=== PATIENT | male | born 1990 | race American Indian/Alaskan Native ===

== ENCOUNTER 2023-12-02 15:59 | Emergency (ER) | payer OTHER ==
[~2023-12-02] VITALS: Ht 177.8 cm; Wt 104.8 kg
[2023-12-02 16:05] VITALS: BP 128/89; PULSE 79; RESP 16; TEMP 98.6; O2SAT 99
[2023-12-02] MEDS: LIDOcaine 1% 30ml preserv. free vial IJ STA (16:56)
[2023-12-02] MEDS ORDERED: tetanus & diphtheria toxoid (Td) vaccine 0.5ml IMVAC ONE (17:05)
[2023-12-02] MEDS: TETanus/Pertussis (Acell)/Diphther VAC/PF (Tdap-Adult) 0.5ml syringe IMVAC ONE (17:12)
== END 2023-12-02 17:27 | disposition home or self-care (01) ==
LOC: ER 15:59
DX: S71.111A Laceration without foreign body, right thigh, initial encounter (principal); W26.0XXA Contact with knife, initial encounter; Y93.89 Activity, other specified; Y92.89 Other specified places as the place of occurrence of the external cause; Y99.8 Other external cause status
CPT/HCPCS: 12002; 90471; 90715; 99283; A6449

== ENCOUNTER 2023-12-15 17:42 | Emergency (ER) | payer OTHER ==
[~2023-12-15] VITALS: Ht 180.3 cm; Wt 105.3 kg
[2023-12-15 17:48] VITALS: BP 130/80; PULSE 75; RESP 16; TEMP 98.5; O2SAT 98
[2023-12-15] MEDS ORDERED: DOXY-457 PO (18:37)
== END 2023-12-15 19:01 | disposition home or self-care (01) ==
LOC: ER 17:43
DX: S71.111D Laceration without foreign body, right thigh, subsequent encounter (principal); X58.XXXD Exposure to other specified factors, subsequent encounter
CPT/HCPCS: 99283

== ENCOUNTER 2025-06-13 16:05 | Emergency (ER) | payer SELFPAY ==
[~2025-06-13] VITALS: Ht 177.8 cm; Wt 99.5 kg
[2025-06-13 16:18] VITALS: BP 123/68; PULSE 72; RESP 15; TEMP 98; O2SAT 97
[2025-06-13] MEDS ORDERED: PRED10TA PO (16:26)
[2025-06-13] MEDS ORDERED: TRIA15CR61 TOP (16:26)
--- NOTE | 2025-06-13 16:26 | Physician Documentation ---
History of Present Illness ~ Chief Complaint: Rash Stated Complaint: POISON ROYCE Time Seen by MD: 16:22 Primary Medical Doctor: NONE Source: patient Mode of Arrival: POV Exam Limitations: no limitations HPI 34-year-old male with poison oak/poison royce to extremities and chest x6 days. Patient has been using hdgm-uox-oigjduj treatments but has increased itching Medication Reconciliation Allergies: Coded Allergies: cefaclor (Verified Allergy, Unknown, swelling, itching, rash, 06/13/25) Scheduled Prednisone (Prednisone), 1 TAB PO DAILY Triamcinolone Acetonide 0.5% Crm* (Kenalog 0.5% Crm*), 1 APPLIC TOP Q12H Past Medical History Past Medical History: No Pertinent History Past Surgical History: noncontributory Drug Use: none Lives with: Family Lives In: Home Occupation: employed Review of Systems All Other Systems at this time: Reviewed and Negative Integumentary: Reports: see HPI Physical Exam Vital Signs: RN Vital Signs have been reviewed: Yes, Temperature: 98.0, Source: Temporal, Heart Rate: 72, Respiratory Rate: 15, BP: 123/68, Pulse Oximetry: 97, Weight: 99.550 Oxygen Flow Rate: 0 Physical Exam General: Alert, no apparent distress. HEENT: moist mucous membranes. Neck: Full range of motion. Respiratory: No respiratory distress speaking in full sentences Chest: No accessory muscle use. Cardiovascular: Appears well perfused Neurologic: Oriented x4. Psychiatric: Normal mood and affect. Skin: Raised maculopapular rash to all 4 extremities with erythema clearly defined borders poison oak appearing Progress Results/Orders Results/Orders Medications Received in ER Medications (Trade) Dose Ordered Sig/Adelso Route PRN Reason Start Time Stop Time Status Last Admin Dose Admin (Kenalog-40 inj) 40 mg ONCE ONCE IM 06/13/25 16:25 06/13/25 16:26 DC 06/13/25 17:00 40 MG Vital Signs 06/13/25 16:18 Temp 98.0 Pulse 72 Resp 15 B/P (MAP) 123/68 Pulse Ox 97 O2 Flow Rate 0 Medical Decision Making Findings Poison oak rash to extremities and chest. Kenalog shot provided as well as triamcinolone cream ordered. Patient to follow up primary care Departure Time of Disposition: 16:24 Disposition: 01 HOME / SELF CARE / HOMELESS Impression: Primary Impression: Allergic contact dermatitis Condition: Stable Discharge Instructions: Contact Dermatitis Additional Instructions: Use cream as prescribed continue with lhgu-yna-pjubiyw treatments for itchy monitor and follow up with primary care as needed Referrals: NO PRIMARY CARE PROVIDER (PCP) Prescriptions Prednisone (Prednisone) 10 Mg Tablet 1 TAB PO DAILY for 7 Days, #7 TAB 0 Refills Prov: BRANDI BEE NP 06/13/25 Triamcinolone Acetonide 0.5% Crm* (Kenalog 0.5% Crm*) 15 Gm Tube 1 APPLIC TOP Q12H for 30 Days, #30 GM apply to affected area(s) Prov: BRANDI BEE NP 06/13/25 Education Educated: Patient Educated regarding: diagnosis, treatment, need for follow up Signature Scribe Signature: No scribe Attestation: The note accurately reflects work and decisions made by me.Brandi WRIGHT 06/13/25 16:26 The note accurately does not reflect any work and decisions made by me as I did not see this patient but accidentally opened the chart. Yao CORRAL 06/13/25 17:07 BRANDI BEE NP Jun 13, 2025 16:26 YAO SKAGGS Jun 13, 2025 17:08
[2025-06-13] MEDS: triamcinolone acetonide 40mg/ml inj IM ONE (17:00)
== END 2025-06-13 17:06 | disposition home or self-care (01) ==
LOC: ER 16:06
DX: L23.7 Allergic contact dermatitis due to plants, except food (principal); Z88.1 Allergy status to other antibiotic agents; Z79.899 Other long term (current) drug therapy
CPT/HCPCS: 96372; 99283; J3301